=== PATIENT | male | born 2000 | race Two or more races ===

== ENCOUNTER 2024-04-19 14:16 | Emergency (ER) | payer MEDICAID, OTHER ==
[~2024-04-19] VITALS: Ht 188 cm; Wt 82.0 kg
[2024-04-19] MEDS: ONDANSETRON ODT 4 MG TAB PO ONE (17:18)
[2024-04-19] MEDS: KETOROLAC TROMETH 60MG/2ML VIAL IM ONE (17:19)
[2024-04-19] MEDS: HYDROcodone-ACET 10/325MG TAB PO ONE (17:19)
[2024-04-19] MEDS ORDERED: HYDR-4798 PO (19:18)
[2024-04-19] MEDS ORDERED: IBUP-1455 PO (19:18)
[2024-04-19 21:04] VITALS: BP 110/62; PULSE 68; RESP 16; TEMP 97.8; O2SAT 98
== END 2024-04-19 21:16 | disposition home or self-care (01) ==
LOC: ER 14:16
DX: S32.028A Other fracture of second lumbar vertebra, initial encounter for closed fracture (principal); V89.2XXA Person injured in unspecified motor-vehicle accident, traffic, initial encounter; Y93.I9 Activity, other involving external motion; Y92.89 Other specified places as the place of occurrence of the external cause; Y99.8 Other external cause status
CPT/HCPCS: 72100; 72131; 96372; 99285; J1885; Q0162

== ENCOUNTER 2024-04-27 15:20 | Emergency (ER) | payer MEDICAID, OTHER ==
[~2024-04-27] VITALS: Ht 188 cm; Wt 88.0 kg
[~2024-04-27 15:20] MED LIST: HYDR-4798 PO; IBUP-1455 PO
[2024-04-27 16:16] VITALS: BP 94/39; PULSE 75; RESP 18; TEMP 98.7; O2SAT 96
[2024-04-27] MEDS ORDERED: HYDR-4798 PO ×2 (17:05→18:40)
[2024-04-27] MEDS ORDERED: IBUP-1455 PO ×2 (17:05→18:40)
[2024-04-27] MEDS: KETOROLAC TROMETH 30 MG/ML 1ML VIAL IM ONE (17:14)
== END 2024-04-27 17:13 | disposition home or self-care (01) ==
LOC: ER 15:26
DX: S32.029A Unspecified fracture of second lumbar vertebra, initial encounter for closed fracture (principal); Z79.899 Other long term (current) drug therapy; X58.XXXA Exposure to other specified factors, initial encounter; Y93.89 Activity, other specified; Y92.89 Other specified places as the place of occurrence of the external cause; Y99.8 Other external cause status
CPT/HCPCS: 96372; 99283; J1885